=== PATIENT | male | born 1960 | race African-American/Black ===

== ENCOUNTER 2017-09-19 21:46 | Inpatient (IN) | payer SELFPAY ==
[~2017-09-19] VITALS: Ht 182.9 cm; Wt 93.0 kg
[~2017-09-19 21:46] MED LIST: COR3 PO; FURO-151 PO; LISI10TA5 PO; OXYC-23 PO; PREDNISONE
[2017-09-19] MEDS ORDERED: NITROGLYCERIN OINT 1GM/INCH UDPKT TD SCH (23:06)
[2017-09-19] MEDS ORDERED: ASPIRIN 325MG TABLET PO SCH (23:15)
[2017-09-19 23:44] LABS: BASOPHILS % 1.3 % (0.0-2.0); EOSINOPHILS % 2.3 % (0.0-5.0); HEMATOCRIT. 34.3 % (42.0-52.0); HEMOGLOBIN. 11.3 g/dL (14.0-18.0); LYMPHOCYTES % 13.9 % (20.0-50.0); MEAN CORPUSCULAR HEMOGLOBIN 34.3 pg (28.0-32.0); MEAN CORPUSCULAR VOLUME 104.1 fL (80.0-94.0); MEAN PLATELET VOLUME 7.9 fl (7.4-10.4); MONOCYTES % 8.4 % (2.0-8.0); NEUTROPHILS % 74.1 % (40.0-76.0); PLATELET 157 x1000/uL (130-400); RED BLOOD CELL COUNT 3.29 mill/uL (4.7-6.1); RED CELL DISTRIBUTION WIDTH 13.3 % (11.6-14.6)
[2017-09-19 23:54] LABS: CARBON DIOXIDE 27 mEq/L (21-32); CHLORIDE 102 mEq/L (98-107); TROPONIN I 0.04 ng/mL (0.00-0.04)
[2017-09-20] MEDS ORDERED: HYDROCODONE/ACETAMINOPHEN 5/325MG TABLET PO ONE (00:15)
[2017-09-20] MEDS ORDERED: ONDANSETRON HCL 4MG/2ML VIAL IV PRN (00:45)
[2017-09-20] MEDS ORDERED: ACETAMINOPHEN 325MG TABLET PO PRN (00:45)
[2017-09-20] MEDS ORDERED: LORAZEPAM 2MG/ML CPJ IV PRN (00:45)
[2017-09-20] MEDS ORDERED: HYDROCODONE/ACETAMINOPHEN 5/325MG TABLET PO PRN (00:45)
[2017-09-20 05:52] LABS: CREATINE KINASE MB FRACTION 1.9 ng/mL (0.5-3.6)
[2017-09-20] MEDS: MORPHINE SULFATE 2 MG/ML CPJ (NOT FOR IM USE) IV PRN ×5 (06:09→22:06)
[2017-09-20 06:31] LABS: CLARITY URINE CLEAR (CLEAR); COLOR URINE YELLOW (YELLOW); GLUCOSE URINE NEGATIVE (NEGATIVE); KETONES URINE NEGATIVE (NEGATIVE); LEUKOCYTE ESTERASE URINE 1+ (NEGATIVE); NITRITE URINE NEGATIVE (NEGATIVE); OCCULT BLOOD URINE NEGATIVE (NEGATIVE); PROTEIN URINE NEGATIVE (NEGATIVE); SPECIFIC GRAVITY URINE 1.018 (1.005-1.030)
[2017-09-20] MEDS ORDERED: LORAZEPAM 0.5MG TABLET PO PRN (06:45)
[2017-09-20 08:30] VITALS: BP 94/66
[2017-09-20] MEDS: ENOXAPARIN 40MG/0.4ML SYR SUBCUT SCH ×2 (09:00→09:34)
[2017-09-20] MEDS: FOLIC ACID 1MG TABLET PO SCH (09:33)
[2017-09-20] MEDS: ASPIRIN 81MG EC TABLET PO SCH (09:33)
[2017-09-20 12:00] VITALS: BP 96/62
[2017-09-20 12:15] LABS: BASOPHILS % 1.1 % (0.0-2.0); EOSINOPHILS % 2.8 % (0.0-5.0); HEMATOCRIT. 32.4 % (42.0-52.0); HEMOGLOBIN. 11.1 g/dL (14.0-18.0); LYMPHOCYTES % 17.4 % (20.0-50.0); MEAN CORPUSCULAR HEMOGLOBIN 35.7 pg (28.0-32.0); MEAN CORPUSCULAR VOLUME 104.5 fL (80.0-94.0); MEAN PLATELET VOLUME 8.1 fl (7.4-10.4); MONOCYTES % 9.9 % (2.0-8.0); NEUTROPHILS % 68.8 % (40.0-76.0); PLATELET 147 x1000/uL (130-400); RED BLOOD CELL COUNT 3.09 mill/uL (4.7-6.1)
[2017-09-20 12:40] LABS: *AMPHETAMINES SCREEN URINE NEGATIVE (NEGATIVE); *BARBITURATES SCREEN URINE NEGATIVE (NEGATIVE); *BENZODIAZEPINES SCREEN URINE NEGATIVE (NEGATIVE); *COCAINE SCREEN URINE NEGATIVE (NEGATIVE); CANNABINOID URINE SCREEN NEGATIVE (NEGATIVE); METHADONE URINE SCREEN NEGATIVE (NEGATIVE); OPIATES URINE SCREEN PRESUMTIVE POSITIVE (NEGATIVE); PHENCYCLIDINE URINE SCREEN NEGATIVE (NEGATIVE)
[2017-09-20] MEDS ORDERED: INFLUENZA VIRUS VACCINE 0.5ML SYR IM ONE (12:45)
[2017-09-20] MEDS ORDERED: PNEUMOCOCCAL 23-VAL P-SAC VAC 0.5 ML IM ONE (12:45)
[2017-09-20 12:51] LABS: CARBON DIOXIDE 26 mEq/L (21-32); CHLORIDE 104 mEq/L (98-107)
[2017-09-20] MEDS ORDERED: DIPHENHYDRAMINE 50MG/ML VIAL IV NR (13:30)
[2017-09-20] MEDS ORDERED: DIPHENHYDRAMINE 50MG CAPSULE PO PRN (14:00)
[2017-09-20] MEDS: CARVEDILOL 3.125 MG TABLET PO SCH ×2 (14:02→22:19)
[2017-09-20 16:00] VITALS: BP 90/59
[2017-09-20 16:13] LABS: CREATINE KINASE MB FRACTION 2.1 ng/mL (0.5-3.6)
[2017-09-20] MEDS ORDERED: DIPHENHYDRAMINE 50MG/ML VIAL IV PRN (18:00)
[2017-09-20] MEDS: FUROSEMIDE 40MG/4ML VIAL IVP SCH (18:23)
[2017-09-20 20:00] VITALS: BP 90/56
[2017-09-20 22:06] VITALS: BP 110/70
[2017-09-21] VITALS: BP 109/68
[2017-09-21 04:00] VITALS: BP 90/60
[2017-09-21] MEDS: MORPHINE SULFATE 2 MG/ML CPJ (NOT FOR IM USE) IV PRN ×5 (05:02→22:26)
[2017-09-21 06:15] LABS: EOSINOPHILS % 2.7 % (0.0-5.0); HEMATOCRIT. 33.2 % (42.0-52.0); HEMOGLOBIN. 11.4 g/dL (14.0-18.0); LYMPHOCYTES % 16.2 % (20.0-50.0); MEAN CORPUSCULAR HEMOGLOBIN 35.9 pg (28.0-32.0); MEAN CORPUSCULAR VOLUME 104.3 fL (80.0-94.0); MEAN PLATELET VOLUME 8.3 fl (7.4-10.4); MONOCYTES % 8.7 % (2.0-8.0); NEUTROPHILS % 71.4 % (40.0-76.0); PLATELET 156 x1000/uL (130-400); RED BLOOD CELL COUNT 3.18 mill/uL (4.7-6.1); RED CELL DISTRIBUTION WIDTH 13.1 % (11.6-14.6)
[2017-09-21 06:51] LABS: CHLORIDE 103 mEq/L (98-107)
[2017-09-21 07:00] LABS: CARBON DIOXIDE 22 mEq/L (21-32); TROPONIN I 0.03 ng/mL (0.00-0.04)
[2017-09-21 08:00] VITALS: BP 94/58
[2017-09-21] MEDS: FUROSEMIDE 40MG/4ML VIAL IVP SCH ×2 (09:19→17:19)
[2017-09-21] MEDS: ENOXAPARIN 40MG/0.4ML SYR SUBCUT SCH (09:19)
[2017-09-21] MEDS: ASPIRIN 81MG EC TABLET PO SCH (09:20)
[2017-09-21] MEDS: CARVEDILOL 3.125 MG TABLET PO SCH ×2 (09:20→21:35)
[2017-09-21] MEDS: FOLIC ACID 1MG TABLET PO SCH (09:20)
[2017-09-21 12:00] VITALS: BP 106/33
[2017-09-21 16:00] VITALS: BP 98/65
[2017-09-21 20:00] VITALS: BP 97/56
[2017-09-21] MEDS: SULFAMETHOXAZOLE/TRIMETHOPRIM 800/160MG TABLET PO SCH (21:34)
[2017-09-22] VITALS: BP 101/62
[2017-09-22 04:00] VITALS: BP 93/63
[2017-09-22] MEDS: MORPHINE SULFATE 2 MG/ML CPJ (NOT FOR IM USE) IV PRN ×2 (05:18→10:02)
[2017-09-22 08:00] VITALS: BP 94/60
[2017-09-22] MEDS: SULFAMETHOXAZOLE/TRIMETHOPRIM 800/160MG TABLET PO SCH (08:33)
[2017-09-22] MEDS: FUROSEMIDE 40MG/4ML VIAL IVP SCH (08:33)
[2017-09-22] MEDS: ENOXAPARIN 40MG/0.4ML SYR SUBCUT SCH ×2 (08:34→08:42)
[2017-09-22] MEDS: FOLIC ACID 1MG TABLET PO SCH (08:34)
[2017-09-22] MEDS: ASPIRIN 81MG EC TABLET PO SCH (08:34)
[2017-09-22] MEDS: CARVEDILOL 3.125 MG TABLET PO SCH (08:34)
[2017-09-22] MEDS ORDERED: FOLI-43 PO (09:36)
[2017-09-22] MEDS ORDERED: ASPI-1158 PO (09:36)
[2017-09-22] MEDS ORDERED: SULF1TAB44 PO ×2 (09:36→09:39)
[2017-09-22] MEDS ORDERED: COR3 PO (09:36)
[2017-09-22] MEDS ORDERED: FURO-151 PO (09:36)
[2017-09-22 10:23] VITALS: BP 91/55
== END 2017-09-22 11:20 | disposition home or self-care (01) | DRG 194 ==
LOC: ER 22:34 → 7WST 09-20 00:15 → ENRESERV 09-20 06:55
PROVIDERS: ADMIT Internal Medicine Nephrology; ATTEND Internal Medicine Nephrology
DX: I11.0 Hypertensive heart disease with heart failure (principal); I42.9 Cardiomyopathy, unspecified; F17.210 Nicotine dependence, cigarettes, uncomplicated; I50.43 Acute on chronic combined systolic (congestive) and diastolic (congestive) heart failure; I47.1 Supraventricular tachycardia; I48.0 Paroxysmal atrial fibrillation; J44.9 Chronic obstructive pulmonary disease, unspecified; N39.0 Urinary tract infection, site not specified; Z95.810 Presence of automatic (implantable) cardiac defibrillator; Z79.899 Other long term (current) drug therapy; Z90.49 Acquired absence of other specified parts of digestive tract; Z71.6 Tobacco abuse counseling
CPT/HCPCS: 36415; 71010; 80048; 80053; 80305; 81001; 82550; 82553; 83735; 83880; 84443; 84484; 85025; 93005; 93306; 99285; J1200; J1650; J1940; J2270